=== PATIENT | female | born 1955 | race Caucasian/White ===

== ENCOUNTER 2018-01-12 13:39 | Emergency (ER) | payer OTHER ==
[2018-01-12 15:11] VITALS: BP 151/69
--- NOTE | 2018-01-12 15:33 | UC ---
Hip/Pelvis Pain - HPI Summary HPI Summary: 62 y/o female presents to the urgent care c/o lower back pain and left hip pain s/p fall backwards around 1230pm at home today. Pt reports she was doing some laundry and she slipped. No LOC or head injury. Pain is 8/10 sharp, specially w / movement or walking. Pt Took a Naproxen PO to alleviate symptoms. Pt denies saddle anesthesia, fecal or urinary incontinence, urinary symptoms or numbness or tingling sensation over the lower extremities. Pt has Hx of psoraitic arthritis. - History Of Current Complaint Chief Complaint: UCGeneralIllness Stated Complaint: S/P FALL-LFT HIP PAIN Time Seen by Provider: 01/12/18 15:30 Hx Obtained From: Patient ?: No Onset/Duration: Sudden Onset, Lasting Hours - 2 hrs Severity Initially: Moderate Severity Currently: Moderate Pain Intensity: 8 Pain Scale Used: 0-10 Numeric Location: Discrete At: - lower back pain s/p fall, Radiates To: - left hip Aggravating Factor(s): Movement, Weight Bearing Alleviating Factor(s): Rest, OTC Medications Associated Signs And Symptoms: Positive: Bruising - lower back - Risk Factors Septic Arthritis Risk Factor: Negative - Allergies/Home Medications Allergies/Adverse Reactions: Allergies Allergy/AdvReac Type Severity Reaction Status Date / Time No Known Allergies Allergy Verified 01/12/18 14:56 Home Medications: Home Medications Adalimumab (NF) [Humira Pen (NF)] 1 inj WEEKLY 01/12/18 [History Confirmed 01/12] Atorvastatin* [Lipitor 80 MG*] 80 mg PO QPM 01/12/18 [History Confirmed 01/12/18 ] Ergocalciferol (Vitamin D2) [Vitamin D2] 50,000 unit PO WEEKLY 01/12/18 [ History Confirmed 01/12/18] Folic Acid TAB* [Folvite TAB*] 1 mg PO DAILY 01/12/18 [History Confirmed ] Levothyroxine TAB* [Synthroid 125 MCG TAB*] 125 mcg PO DAILY 01/12/18 [History Confirmed 01/12/18] Methotrexate TAB* 4 tab PO WEEKLY 01/12/18 [History Confirmed 01/12/18] Naproxen TAB* [Naprosyn 250 mg TAB*] 500 mg PO BID PRN 01/12/18 [History Confirmed 01/12/18] Ranitidine TAB (NF) [Zantac TAB (NF)] 150 mg PO BID 01/12/18 [History Confirmed 01/12/18] metFORMIN* [Glucophage 500 MG TAB *] 500 mg PO QAM 01/12/18 [History Confirmed 01/12/18] PMH/Surg Hx/FS Hx/Imm Hx Previously Healthy: Yes Endocrine History: Diabetes - pre-DM on diet control, Hypothyroidism Other Endocrine History: Psoriatic arthritis - Surgical History Surgical History: Yes Surgery Procedure, Year, and Place: Tubal ligation - Family History Known Family History: Positive: Hypertension, Diabetes - Social History Occupation: Unemployed Lives: With Family Alcohol Use: None Substance Use Type: None Smoking Status (MU): Never Smoked Tobacco Review of Systems Constitutional: Negative Skin: Negative Eyes: Negative ENT: Negative Respiratory: Negative Cardiovascular: Negative Gastrointestinal: Negative Genitourinary: Negative Motor: Negative Neurovascular: Negative Musculoskeletal: Decreased ROM - lower casi and left hip, Other: - lower back pain and left hip pain s/p fall Neurological: Negative Psychological: Negative Is Patient Immunocompromised?: No All Other Systems Reviewed And Are Negative: Yes Physical Exam - Summary Physical Exam Summary: Vital Signs Reviewed: Yes Appearance: Well-Appearing, Well-Nourished, obese female sitting in the examining table w/o any apparent pain distress. Eyes: Positive: Conjunctiva Clear - PERRLA, EOMI. ENT: Positive: Normal ENT inspection, Hearing grossly normal, Pharynx normal, TMs normal, Uvula midline Neck: Positive: Supple, Nontender, No Lymphadenopathy Respiratory: Positive: Chest non-tender, Lungs clear, Normal breath sounds, No respiratory distress Cardiovascular: Positive: RRR, No Murmur, Pulses Normal, Brisk Capillary Refill Abdomen Description: Positive: Nontender, No Organomegaly, Soft. Negative: CVA Tenderness (R), CVA Tenderness (L) Bowel Sounds: Positive: Present Musculoskeletal: Positive: Strength Intact, Other: - BACK: Patient walked into the urgent care room with signs of limping, but able to bear weight. left side of lower back w/ mild bruising at level S1. No masses palpated. Point tenderness at the level of L5-S1, No CVAT, no flank ecchymosis . No sacroiliac notch tenderness, No saddle anesthesia. decrease ROM: limited due to pain, Straight Leg Raise: positive on left side. Patellar reflexes: brisk, symmetric Muscle strength lower extremities. Dorsiflexion/ plantar flexion of ankles. Lower extremities: Femoral, popliteal, posterior tibial, and dorsalis pedis pulses WNL. Pt refuse rectal exam. Hip:No Tenderness to palpation over the symphysis pubis, ischial bone, trochanter, SI notch, buttocks, quadriceps, femoral triangle, inguinal ligament. Point tenderness on LF lateral side of the hip below the iliac crest. No inguinal lymphadenopathy. FROM limited due to pain. Distal motor and neurovascular status are intact. Neurological: Positive: Alert, Muscle Tone Normal Psychological Exam: Normal Skin Exam: Normal Triage Information Reviewed: Yes Vital Signs: Initial Vital Signs Temp 98.9 F 01/12/18 15:02 Pulse 71 01/12/18 15:02 Resp 16 01/12/18 15:02 BP 151/69 01/12/18 15:02 Pulse Ox 99 01/12/18 15:02 Hip Injury Course/Dx - Course Course Of Treatment: 62 y/o female presents to the urgent care c/o lower back pain and left hip pain s/p fall backwards around 1230pm at home today. Pt reports she was doing some laundry and she slipped. No LOC or head injury. Pain is 8/10 sharp, specially w/ movement or walking. Pt Took a Naproxen PO to alleviate symptoms. Pt denies saddle anesthesia, fecal or urinary incontinence, urinary symptoms or numbness or tingling sensation over the lower extremities. Pt has Hx of psoriatic arthritis. Hx obtained. Pt offered medication for pain. Pt declined [place], Pt given tylenol PO at the clinic and advised to stop taking Naproxen since she is taking Metrotraxate and can increase bleeding effects. Lumbosacral X-ray ordered, and left hip X-ray ordered. Impression: No acute osseous injury observed, but DDD at levels L3-L4, L4-L5, L5-S1 and osteoarthritis observed,also atherosclerosis. LF hip x-ray: No fracture observed. Pt offered [place] again, but she declined, Pt Rx tyelenol PO for pain. Also Rx flexeril and Prednisone PO to alleviate symptoms. Advised to wear a back support and f/u w/ Orthopedic Dr Corbin 1- 2 days for further evaluation and treament. Patient is able to ambulate freely w/ mild limp. Pt's BP is elevated today advised to decrease salt in diet, monitor BP and f/u with PCP for further management. Plan of care was discussed with the patient and patient understands and agrees. All questions were answered at patient satisfaction. Pt left clinic hemodynamically stable. - Differential Dx/Diagnosis Differential Diagnosis/HQI/PQRI: Arthritis, Contusion, Fracture, Sciatica, Sprain, Strain Provider Diagnoses: 1- Acute lower back pain s/p fall. 2-Acute hip pain s/p fall. 3-Back spasm. 4-Degenerative disc disease. 5-Uncontrolled HTN Discharge - Sign-Out/Discharge Documenting (check all that apply): Discharge - Discharge Plan Condition: Stable Disposition: HOME Prescriptions: Acetaminophen TAB* [Tylenol TAB*] 650 mg PO Q6H PRN #30 tab PRN Reason: Pain Cyclobenzaprine TAB* [Flexeril 10 MG TAB*] 10 mg PO TID PRN #15 tab PRN Reason: Spasms - Back predniSONE TAB* [Deltasone TAB*] 20 mg PO DAILY #11 tab Patient Education Materials: Acute Low Back Pain (ED), Low-Sodium Diet (ED), Muscle Spasm (ED), Hip Pain (ED) Referrals: Rui Boggs MD [Medical Doctor] - 2 Days Brady RUSSO,Deshawn Mustafa [Primary Care Provider] - 3 Days Additional Instructions: 1- Please take Tyelenol PO as directed after meals for pain. Take Prednisone PO to alleviate swelling 2- Take Flexeril PO as directed for muscle spasm. Please do not drive while taking the medication. 3- Wear a back support. Avoid strenuous exercise of heavy lifting. 4- Please follow up with Orthopedic Dr Boggs in 1-2 days if not improvement of symptoms, for further management. 5-Your BP is elevated today. please decrease salt in your diet, monitor BP and if it continues to be elevated please f/u with your PCP for further management - Billing Disposition and Condition Condition: STABLE Disposition: HOME
[2018-01-12] MEDS ORDERED: Acetaminophen TAB* 325 MG PO ONE (15:42)
--- NOTE | 2018-01-12 16:36 | RAD ---
HISTORY: Acute left hip pain status post fall COMPARISONS: None VIEWS: 3, Frontal view of the pelvis with frontal and frog-leg views of the left hip FINDINGS: BONE DENSITY: Normal. BONES: There is no displaced fracture. JOINTS: There is no arthropathy. ALIGNMENT: There is no dislocation. SOFT TISSUES: Unremarkable. OTHER FINDINGS: Degenerative changes are noted of the spine IMPRESSION: NO RADIOGRAPHIC EVIDENCE FOR HIP FRACTURE. X-RAYS MAY BE NEGATIVE WITH NONDISPLACED HIP FRACTURE, IF THERE IS PERSISTENT CLINICAL CONCERN, RECOMMEND CONSIDERATION OF MRI. IN THE SETTING OF CONTRAINDICATION TO MRI OR LIMITATION IN EMERGENT ACCESS TO MRI, CT WOULD BE SUGGESTED.
--- NOTE | 2018-01-12 16:37 | RAD ---
HISTORY: Acute low back pain status post fall COMPARISONS: None VIEWS: 5 , Frontal, lateral, and bilateral oblique views of the lumbar spine. FINDINGS: ALIGNMENT: The alignment is normal. VERTEBRAL BODIES: The vertebral body heights are normal. The interpedicular distances are normal. There is anterolateral marginal osteophyte formation most pronounced at L4-L5 and L5-S1 JOINTS: There is facet hypertrophic change most pronounced at L3-L4, L4-L5, and L5-S1. INTERVERTEBRAL DISCS: There is diffuse loss of intervertebral disc height. SOFT TISSUE: There is atherosclerosis of the abdominal aorta. OTHER: There is mild osteoarthrosis of the SI joints. IMPRESSION: 1. DEGENERATIVE DISC DISEASE AND OSTEOARTHRITIS, MOST PRONOUNCED AT L3-L4, L4-L5, AND L5-S1. 2. ATHEROSCLEROSIS.
== END 2018-01-12 17:18 | disposition home or self-care (01) ==
LOC: UCCORT 13:39
DX: M54.5 Low back pain (principal); M62.830 Muscle spasm of back; M25.552 Pain in left hip; W01.0XXA Fall on same level from slipping, tripping and stumbling without subsequent striking against object, initial encounter; Y93.E2 Activity, laundry; Y92.008 Other place in unspecified non-institutional (private) residence as the place of occurrence of the external cause; I10 Essential (primary) hypertension; M51.36 Other intervertebral disc degeneration, lumbar region; M51.37 Other intervertebral disc degeneration, lumbosacral region; E11.9 Type 2 diabetes mellitus without complications; E03.9 Hypothyroidism, unspecified; L40.50 Arthropathic psoriasis, unspecified
CPT/HCPCS: 72110; 99212; A9270-GY; G0463

== ENCOUNTER 2020-08-05 05:57 | Inpatient (IN) ==
[2020-08-05] MEDS ORDERED: Lactated Ringers 1000 ml BAG 1,000 ML IV SCH (06:00)
[2020-08-05] MEDS ORDERED: Buffered Lidocaine 1% SYRIN 1 ml INTRADERM ONE (06:00)
[2020-08-05] MEDS ORDERED: Heparin 5000 UNITS/ML 1 mL VIAL ONE (06:51)
[2020-08-05] MEDS ORDERED: Ondansetron 4 mg VIAL 2 MG/ML 2 ml VIAL ONE (06:51)
[2020-08-05] MEDS ORDERED: Dexamethasone IV 4 MG/ML VIAL 1 ml VIAL ONE (06:51)
[2020-08-05] MEDS ORDERED: ceFAZolin 2 GM PREMIX 2 GM/50 ML BAG ONE (06:52)
[2020-08-05] MEDS ORDERED: fentaNYL 250 mcg/5 ml 50 MCG/ML 5 ml VIAL (250 MCG) ONE (07:01)
[2020-08-05] MEDS ORDERED: Midazolam 2 mg/2 ml VIAL 1 mg/ml 2 ml VIAL (2 mg) ONE (07:01)
[2020-08-05] MEDS ORDERED: Propofol 10 MG/ML 20 ML BTL ONE (07:02)
[2020-08-05] MEDS ORDERED: Lidocaine 2% PF 5 ML VIAL ONE (07:02)
[2020-08-05] MEDS ORDERED: Rocuronium 50 mg VIAL 10 mg/ml 5 ml VIAL (50 mg) ONE (07:02)
[2020-08-05] MEDS ORDERED: Gentamicin ADULT 40 MG/ML VIAL (2 ML VIAL = 80 MG) ONE (07:09)
[2020-08-05] MEDS ORDERED: Povidone Iodine 5% OPTH 30 ML BTL ONE (07:09)
[2020-08-05] MEDS ORDERED: ceFAZolin VIAL VIAL ONE ×2 (07:10→11:48)
[2020-08-05] MEDS ORDERED: Bacitracin INJECTION 50,000 UNITS ONE (07:10)
[2020-08-05] MEDS ORDERED: Methylene Blue 0.5 % 50 MG/10 ML AMP IV ONE (07:51)
[2020-08-05] MEDS ORDERED: Ketamine HCL 50 mg/ml 10 ml VIAL (500 MG) ONE (08:45)
[2020-08-05] MEDS ORDERED: HYDROmorphone 1 MG/1 ML SYRINGE ONE ×3 (08:46→16:04)
[2020-08-05] MEDS ORDERED: Bupivacaine 0.25% SDV 30 ML ONE (10:49)
[2020-08-05] MEDS ORDERED: Naloxone 0.4 mg VIAL 0.4 mg/ml 1 ml VIAL IV PRN (11:31)
[2020-08-05] MEDS ORDERED: Ondansetron 4 mg VIAL 2 MG/ML 2 ml VIAL IV PRN ×2 (11:31→13:34)
[2020-08-05] MEDS ORDERED: ceFAZolin 1 GM ADVAN 1 GM ADDV.VIAL IVPB ONE (11:58)
[2020-08-05] MEDS ORDERED: Al Hydrox/Mg Hydrox/Simet LIQ 30 ML UDC PO PRN (13:34)
[2020-08-05] MEDS ORDERED: Magnesium Hydroxide LIQ 30 ML UDC PO PRN (13:34)
[2020-08-05] MEDS ORDERED: diPHENhydraMINE 25 mg TAB PO PRN (13:54)
[2020-08-05] MEDS ORDERED: diPHENhydraMINE IV 50 MG/ML 1 ml VIAL (BENADRYL) IV PRN (13:54)
[2020-08-05] MEDS ORDERED: Metoprolol Tartrate 5 mg VIAL 5 ml VIAL (1 mg/ml) IV ONE (14:11)
[2020-08-05] MEDS ORDERED: Metoprolol Tartrate 5 mg VIAL 5 ml VIAL (1 mg/ml) IV PRN (14:11)
[2020-08-05] MEDS: Acetaminophen IV 1 GM/100ML 1,000 MG/100 ML VIAL IVPB ONE ×2 (14:12→14:16)
[2020-08-05] MEDS ORDERED: Acetaminophen IV 1 GM/100ML 100 ML ONE (14:14)
[2020-08-05] MEDS ORDERED: Metoprolol Tartrate 5 mg VIAL 5 ml VIAL (1 mg/ml) ONE ×2 (14:14→15:51)
[2020-08-05] MEDS ORDERED: HYDROcodone/ACETAMIN 5/325 mg TAB ONE (16:04)
[2020-08-05] MEDS: HYDROmorphone 1 MG/1 ML SYRINGE IV PRN ×3 (16:05→16:33)
[2020-08-05] MEDS: HYDROcodone/ACETAMIN 5/325 mg TAB PO PRN (16:06)
[2020-08-05] MEDS ORDERED: hydrALAZINE 20 mg/ml 1 ML Vial IV IV SLOW PU ONE (16:39)
[2020-08-05] MEDS ORDERED: hydrALAZINE 20 mg/ml 1 ML Vial IV IV SLOW PU PRN (17:20)
[2020-08-05] MEDS ORDERED: Senna TAB 8.6 mg TAB PO PRN (17:20)
[2020-08-05] MEDS: NS 0.9% 1000 ml BAG 1,000 ML IV SCH (17:52)
[2020-08-05] MEDS: HYDROmorphone 0.5 MG/0.5 ML SYRINGE IV SLOW PU PRN ×2 (18:04→22:30)
[2020-08-05] MEDS: ceFAZolin 2 GM PREMIX 2 GM/50 ML BAG IVPB SCH (19:45)
[2020-08-05] MEDS: Heparin 5000 UNITS/ML 1 mL VIAL SUBCUT SCH (22:04)
[2020-08-06] MEDS: HYDROcodone/ACETAMIN 5/325 mg TAB PO PRN ×2 (02:13→09:29)
[2020-08-06] MEDS: ceFAZolin 2 GM PREMIX 2 GM/50 ML BAG IVPB SCH ×2 (04:00→12:01)
[2020-08-06] MEDS: Heparin 5000 UNITS/ML 1 mL VIAL SUBCUT SCH (06:09)
[2020-08-06] MEDS: NS 0.9% 1000 ml BAG 1,000 ML IV SCH (08:09)
[2020-08-06 11:51] VITALS: BP 141/60
== END 2020-08-06 13:00 | disposition home or self-care (01) | DRG 581 ==
LOC: AA 05:57 → SSU 17:50
PROVIDERS: ADMIT Plastic Surgery; ATTEND Student in an Organized Health Care Education/Training Program

== ENCOUNTER 2021-11-02 11:53 | Inpatient (IN) ==
[2021-11-02] MEDS ORDERED: Magnesium Hydroxide LIQ 30 ML UDC PO PRN (13:13)
[2021-11-02] MEDS ORDERED: NS 0.9% 1000 ml BAG 1,000 ML IV SCH (13:15)
[2021-11-02] MEDS ORDERED: Vancomycin per Pharmacy 1 EA NOTE FOLLOW UP SCH (14:00)
[2021-11-02] MEDS ORDERED: Vancomycin 1,500 MG in NS 0.9% 250 ml 250 ML IVPB ONE (14:00)
[2021-11-02 14:14] LABS: Hematocrit 34 % (35-47); Hemoglobin 11.6 g/dL (12.0-16.0); Mean Corpuscular HGB Conc 34 g/dL (31-36); Mean Corpuscular Hemoglobin 32 pg (27-31); Mean Corpuscular Volume 93 fL (80-97); Mean Platelet Volume 7.8 fL (7.4-10.4); Platelet Count 198 10^3/uL (150-450); Red Blood Count 3.65 10^6 /uL (3.70-4.87); Red Cell Distribution Width 18 % (10-15); White Blood Count 5.8 10^3/uL (3.5-10.8)
[2021-11-02 14:23] LABS: INR 1.12 (0.86-1.15)
[2021-11-02 14:28] LABS: C Reactive Protein 243.52 mg/L (<8.01); Calcium 8.5 mg/dL (8.6-10.3); Potassium 3.3 mmol/L (3.5-5.0); eGFR CKD-EPI 88.1 (>60)
[2021-11-02] MEDS: Cefepime 2 GM in Dextrose 2 GM/50 ML BAG IV SCH (14:28)
[2021-11-02] MEDS: Heparin 5000 UNITS/ML 1 mL VIAL SUBCUT SCH ×2 (15:20→21:22)
[2021-11-02 15:28] LABS: Anisocytosis 1+; Toxic Granulation 1+
[2021-11-02 15:29] LABS: ABS Eosinophils 0.1 10^3/ul (0-0.6); ABS Lymphocytes 0.7 10^3/ul (1.0-4.8); ABS Monocytes 0.7 10^3/ul (0-0.8); ABS Neutrophils 4.2 10^3/ul (1.5-7.7); Eosinophil % 2.6 %; Lymphocyte % 12.1 %
[2021-11-02] MEDS: CMCS: Anastrozole 1 mg TAB (NF) PO SCH (20:13)
[2021-11-03] MEDS ORDERED: Vancomycin 1,250 MG in NS 0.9% 250 ml 250 ML IVPB SCH (03:00)
[2021-11-03] MEDS: Cefepime 2 GM in Dextrose 2 GM/50 ML BAG IV SCH (03:05)
[2021-11-03 06:53] LABS: Hematocrit 30 % (35-47); Hemoglobin 10.5 g/dL (12.0-16.0); Mean Corpuscular HGB Conc 35 g/dL (31-36); Mean Corpuscular Hemoglobin 32 pg (27-31); Mean Corpuscular Volume 92 fL (80-97); Mean Platelet Volume 7.7 fL (7.4-10.4); Platelet Count 205 10^3/uL (150-450); Red Cell Distribution Width 18 % (10-15); White Blood Count 5.3 10^3/uL (3.5-10.8)
[2021-11-03 07:23] LABS: Anion Gap 8 mmol/L (2-11); Blood Urea Nitrogen 14 mg/dL (6-24); CO2 Carbon Dioxide 24 mmol/L (22-32); Calcium 8.1 mg/dL (8.6-10.3); Chloride 105 mmol/L (101-111); Glucose 129 mg/dL (70-100); Potassium 3.2 mmol/L (3.5-5.0); Sodium 137 mmol/L (135-145); eGFR CKD-EPI 94.8 (>60)
[2021-11-03 07:38] LABS: TSH Ultra Thyroid Stim Horm 6.32 mcIU/mL (0.34-5.60)
[2021-11-03 07:57] LABS: ABS Eosinophils 0.3 10^3/ul (0-0.6); ABS Lymphocytes 0.8 10^3/ul (1.0-4.8); ABS Monocytes 0.6 10^3/ul (0-0.8); ABS Neutrophils 3.6 10^3/ul (1.5-7.7); Lymphocyte % 14.3 %
[2021-11-03] MEDS: KCL 20 MEQ/100 ML IVPREMIX 20 MEQ/100 ML BAG IV SCH ×2 (10:20→18:41)
[2021-11-03 10:23] LABS: T4, Total 9.93 mcg/dL (6.09-12.23)
[2021-11-03 14:45] LABS: Free T4 1.25 ng/dL (0.61-1.12)
[2021-11-03] MEDS ORDERED: Propofol 10 MG/ML 20 ML BTL ONE (14:48)
[2021-11-03] MEDS ORDERED: Lidocaine 2% PF 5 ML VIAL ONE (14:49)
[2021-11-03] MEDS ORDERED: Rocuronium 50 mg VIAL 10 mg/ml 5 ml VIAL (50 mg) ONE (14:49)
[2021-11-03] MEDS ORDERED: Ondansetron 4 mg VIAL 2 MG/ML 2 ml VIAL ONE (14:49)
[2021-11-03] MEDS ORDERED: fentaNYL 100 mcg/2 ml 50 MCG/ML VIAL ONE (14:49)
[2021-11-03] MEDS ORDERED: Dexamethasone IV 4 MG/ML VIAL 1 ml VIAL ONE (14:49)
[2021-11-03 14:52] LABS: Corrected Retic Count 0.3 % (0.5-1.5); Hematocrit for Retic CNT 31 % (35-47); Immature Retic Fraction 0.41; RBC Retic Count 3.34 10^6/uL (3.70-4.87)
[2021-11-03] MEDS ORDERED: ceFAZolin VIAL VIAL ONE ×3 (15:25→16:01)
[2021-11-03 15:26] LABS: Folate > 20.00 ng/mL (5.90-24.80)
[2021-11-03] MEDS: ceFAZolin 2 GM in NS PREMIX 2 GM/100 ML BAG IVPB SCH ×2 (15:27→23:22)
[2021-11-03 15:37] LABS: Ferritin 967.4 ng/mL (11-307)
[2021-11-03 15:44] LABS: Vitamin B12 550 pg/mL (180-914)
[2021-11-03] MEDS ORDERED: Gentamicin ADULT 40 MG/ML VIAL (2 ML VIAL = 80 MG) ONE (16:01)
[2021-11-03] MEDS ORDERED: HYDROmorphone 1 MG/1 ML SYRINGE IV PRN (16:49)
[2021-11-03] MEDS ORDERED: Naloxone 0.4 mg VIAL 0.4 mg/ml 1 ml VIAL IV PRN (16:49)
[2021-11-03] MEDS ORDERED: fentaNYL 100 mcg/2 ml 50 MCG/ML VIAL IV PRN (16:49)
[2021-11-03] MEDS ORDERED: Metoclopramide 5 MG/ML VIAL (10 mg) IV PRN (16:49)
[2021-11-03] MEDS ORDERED: KCL 20 MEQ/100 ML IVPREMIX 20 MEQ/100 ML BAG IV ONE (18:00)
[2021-11-03 18:29] LABS: Hematocrit 33 % (35-47); Hemoglobin 11.1 g/dL (12.0-16.0); Mean Corpuscular HGB Conc 34 g/dL (31-36); Mean Corpuscular Hemoglobin 32 pg (27-31); Mean Corpuscular Volume 93 fL (80-97); Mean Platelet Volume 7.8 fL (7.4-10.4); Platelet Count 218 10^3/uL (150-450); Red Blood Count 3.52 10^6 /uL (3.70-4.87); Red Cell Distribution Width 18 % (10-15); White Blood Count 6.1 10^3/uL (3.5-10.8)
[2021-11-03] MEDS ORDERED: HYDROcodone/ACETAMIN 5/325 mg TAB PO PRN (18:39)
[2021-11-03] MEDS ORDERED: HYDROmorphone 0.5 MG/0.5 ML SYRINGE IV PRN (18:39)
[2021-11-03] MEDS: CMCS: Anastrozole 1 mg TAB (NF) PO SCH (21:59)
[2021-11-04 07:21] LABS: Hematocrit 30 % (35-47); Hemoglobin 10.3 g/dL (12.0-16.0); Mean Corpuscular HGB Conc 34 g/dL (31-36); Mean Corpuscular Hemoglobin 32 pg (27-31); Mean Corpuscular Volume 93 fL (80-97); Mean Platelet Volume 7.5 fL (7.4-10.4); Platelet Count 277 10^3/uL (150-450); Red Blood Count 3.24 10^6 /uL (3.70-4.87); Red Cell Distribution Width 18 % (10-15); White Blood Count 7.1 10^3/uL (3.5-10.8)
[2021-11-04 07:32] LABS: Albumin 2.9 g/dL (3.2-5.2); Albumin/Globulin Ratio 1.3 (1-3); Calcium 8.4 mg/dL (8.6-10.3); Globulin 2.3 g/dL (2-4); Potassium 4.2 mmol/L (3.5-5.0); Total Bilirubin 0.4 mg/dL (0.2-1.0); Total Protein 5.2 g/dL (6.4-8.9); eGFR CKD-EPI 86.7 (>60)
[2021-11-04 07:54] LABS: ABS Lymphocytes 0.7 10^3/ul (1.0-4.8); ABS Monocytes 0.5 10^3/ul (0-0.8); Lymphocyte % 9.6 %
[2021-11-04] MEDS: Heparin 5000 UNITS/ML 1 mL VIAL SUBCUT SCH ×2 (11:09→22:17)
[2021-11-04] MEDS ORDERED: Buffered Lidocaine 1% SYRIN 1 ml INTRADERM ONE (12:03)
[2021-11-04] MEDS ORDERED: Vancomycin Trough Check NOTE FOLLOW UP ONE (14:30)
[2021-11-04] MEDS: CMCS: Anastrozole 1 mg TAB (NF) PO SCH (22:17)
[2021-11-04] MEDS: ceFAZolin 2 GM PREMIX 2 GM/50 ML BAG IVPB SCH (22:26)
[2021-11-05 05:46] LABS: Hematocrit 28 % (35-47); Hemoglobin 9.6 g/dL (12.0-16.0); Mean Corpuscular HGB Conc 34 g/dL (31-36); Mean Corpuscular Hemoglobin 32 pg (27-31); Mean Corpuscular Volume 94 fL (80-97); Mean Platelet Volume 7.2 fL (7.4-10.4); Platelet Count 324 10^3/uL (150-450); Red Blood Count 3.03 10^6 /uL (3.70-4.87); Red Cell Distribution Width 18 % (10-15); White Blood Count 5.4 10^3/uL (3.5-10.8)
[2021-11-05] MEDS: ceFAZolin 2 GM PREMIX 2 GM/50 ML BAG IVPB SCH (05:49)
[2021-11-05 06:08] LABS: ABS Basophils 0.1 10^3/ul (0-0.2); ABS Eosinophils 0.1 10^3/ul (0-0.6); ABS Lymphocytes 1.2 10^3/ul (1.0-4.8); ABS Monocytes 0.5 10^3/ul (0-0.8); ABS Neutrophils 3.5 10^3/ul (1.5-7.7); Eosinophil % 2.7 %; Lymphocyte % 22.6 %
[2021-11-05 07:38] VITALS: BP 161/80
[2021-11-05] MEDS: Heparin 5000 UNITS/ML 1 mL VIAL SUBCUT SCH (08:47)
[2021-11-05] MEDS ORDERED: DAPTOmycin SDV 500 MG in NS 0.9% 50 ML 50 ML IVPB SCH (12:00)
[2021-11-06 11:03] LABS: % Iron Saturation 36 % (14 - 50); Total Iron Binding Capacity 166 mcg/dL (250 - 400); Transferrin 141 mg/dL (200 - 360)
== END 2021-11-05 15:20 | disposition home or self-care (01) | DRG 571 ==
LOC: SSU 11:53
PROVIDERS: ADMIT Hospitalist; ATTEND Hospitalist

== ENCOUNTER 2023-04-18 09:23 | Observation (INO) ==
[~2023-04-18 09:23] MED LIST: Buffered Lidocaine 1% SYRIN 1 ml INTRADERM ONE; NS 0.9% 1000 ml BAG 1,000 ML IV SCH
[2023-04-18] MEDS ORDERED: Chlorhexidine MOUTHWASH 0.12% 15 ML UDC ONE (09:57)
[2023-04-18] MEDS ORDERED: ceFAZolin 2 GM in NS PREMIX 2 GM/100 ML BAG IVPB ONE (10:04)
[2023-04-18] MEDS ORDERED: Lidocaine 2% PF 5 ML VIAL ONE (10:07)
[2023-04-18] MEDS ORDERED: Ondansetron 4 mg VIAL 2 MG/ML 2 ml VIAL ONE (10:07)
[2023-04-18] MEDS ORDERED: Dexamethasone IV 4 MG/ML VIAL 1 ml VIAL ONE (10:07)
[2023-04-18] MEDS ORDERED: Propofol 10 MG/ML 20 ML BTL ONE ×2 (10:07→11:02)
[2023-04-18] MEDS ORDERED: Rocuronium 50 mg VIAL 10 mg/ml 5 ml VIAL (50 mg) ONE (10:10)
[2023-04-18] MEDS ORDERED: fentaNYL 100 mcg/2 ml 50 MCG/ML VIAL ONE ×2 (10:11→13:04)
[2023-04-18 10:22] LABS: Rapid COVID-19 Molecular Undetected (Undetected)
[2023-04-18] MEDS ORDERED: Thrombin 5,000 UNITS 1 APPLIC KIT - topical use - TOPICAL ONE (10:59)
[2023-04-18] MEDS ORDERED: Lidocaine 1% w EPI 1:200,000 SDV 30 ML VIAL ONE (10:59)
[2023-04-18] MEDS ORDERED: Gelfoam 12-7 ADSORBABL SPONGE ONE ×2 (11:00→12:46)
[2023-04-18] MEDS ORDERED: ceFAZolin VIAL VIAL ONE (11:00)
[2023-04-18] MEDS ORDERED: Midazolam 2 mg/2 ml VIAL 1 mg/ml 2 ml VIAL (2 mg) ONE (11:00)
[2023-04-18] MEDS ORDERED: Acetaminophen IV 1 GM/100ML 1,000 MG/100 ML BAG IV ONE (11:05)
[2023-04-18] MEDS ORDERED: Phenylephrine 40 mcg/mL 10mL (400mcg) SYRINGE ONE (12:10)
[2023-04-18] MEDS ORDERED: Calcium Carb (TUMS) 500 mg CHEW TAB PO PRN (12:56)
[2023-04-18] MEDS ORDERED: Senna TAB 8.6 mg TAB PO PRN (12:56)
[2023-04-18] MEDS ORDERED: HYDROcodone/ACETAMIN 5/325 mg TAB PO PRN (12:56)
[2023-04-18] MEDS ORDERED: Morphine 2 MG/ML SYRINGE IV PRN (12:56)
[2023-04-18] MEDS ORDERED: Ondansetron 4 mg VIAL 2 MG/ML 2 ml VIAL IV PRN (12:56)
[2023-04-18] MEDS ORDERED: Lactated Ringers 1000 ml BAG 1,000 ML IV SCH (13:00)
[2023-04-18] MEDS ORDERED: Naloxone 0.4 mg VIAL 0.4 mg/ml 1 ml VIAL IV PRN (13:10)
[2023-04-18] MEDS: fentaNYL 100 mcg/2 ml 50 MCG/ML VIAL IV PRN ×2 (13:14→13:44)
[2023-04-18] MEDS ORDERED: HYDROcodone/ACETAMIN 5/325 mg TAB ONE (14:57)
[2023-04-18] MEDS: HYDROcodone/ACETAMIN 5/325 mg TAB PO PRN (19:20)
[2023-04-18] MEDS ORDERED: CMCS:Anastrozole 1 mg TAB (NF) PO SCH (21:00)
[2023-04-19] MEDS: HYDROcodone/ACETAMIN 5/325 mg TAB PO PRN (05:28)
[2023-04-19 10:12] VITALS: BP 117/64
== END 2023-04-19 13:37 | disposition home or self-care (01) ==
LOC: SSU 09:23 → OR 09:23
PROVIDERS: ADMIT Neurological Surgery; ATTEND Neurological Surgery